=== PATIENT | female | born 1950 | race Caucasian/White ===

== ENCOUNTER → 2017-12-09 | Outpatient (CLI) | payer MEDICARE ==
[2017-12-09 11:41] LABS: T4, Free (Free Thyroxine) 1.81 ng/dL (0.78-2.19)
== END | disposition home or self-care (01) ==
LOC: LABWHC1 10:39
PROVIDERS: ATTEND Internal Medicine Endocrinology, Diabetes & Metabolism
DX: E03.8 Other specified hypothyroidism (principal)
CPT/HCPCS: 36415; 84439; 84443; 84480

== ENCOUNTER → 2018-02-08 | Outpatient (CLI) | payer MEDICARE | END | disposition home or self-care (01) | LOC: LABWHC1 10:26 | PROVIDERS: ATTEND Internal Medicine Endocrinology, Diabetes & Metabolism | DX: E03.8 Other specified hypothyroidism (principal) | CPT/HCPCS: 36415; 84443 ==

== ENCOUNTER → 2018-04-06 | Outpatient (CLI) | payer MEDICARE ==
[2018-04-06 14:06] LABS: T4, Free (Free Thyroxine) 1.95 ng/dL (0.78-2.19)
[2018-04-06 18:51] LABS: Thyroid Peroxidase Antibodies 306.2 U/mL (0.0-60.0)
== END | disposition home or self-care (01) ==
LOC: LABWHC1 12:36
PROVIDERS: ATTEND Internal Medicine Endocrinology, Diabetes & Metabolism
DX: E03.9 Hypothyroidism, unspecified (principal)
CPT/HCPCS: 36415; 84439; 84443; 84481; 86376; 86800

== ENCOUNTER → 2018-06-15 | Outpatient (CLI) | payer MEDICARE | END | disposition home or self-care (01) | LOC: LABWHC1 10:56 | PROVIDERS: ATTEND Internal Medicine Endocrinology, Diabetes & Metabolism | DX: E03.8 Other specified hypothyroidism (principal) | CPT/HCPCS: 36415; 84443 ==

== ENCOUNTER → 2018-06-23 | Outpatient (CLI) | payer MEDICARE ==
--- NOTE | 2018-06-26 10:15 | MM ---
Reason for exam: screening (asymptomatic). Last mammogram was performed 1 year and 8 months ago. History: Family history of breast cancer in mother at age 70. Physical Findings: A clinical breast exam by your physician is recommended on an annual basis and results should be correlated with mammographic findings. MG 3D Screening Mammo W/Cad Bilateral CC and MLO view(s) were taken. Technologist: RT Shree (R)(M) Prior study comparison: October 26, 2016, mammogram. June 25, 2014, mammogram. There are scattered fibroglandular densities. There is no discrete abnormality. No significant changes when compared with prior studies. ASSESSMENT: Negative, BI-RAD 1 RECOMMENDATION: Routine screening mammogram of both breasts in 1 year.
== END | disposition home or self-care (01) ==
LOC: RADMAMWWP 10:11
PROVIDERS: ATTEND Family Medicine
DX: Z12.31 Encounter for screening mammogram for malignant neoplasm of breast (principal)
CPT/HCPCS: 77063; 77067

== ENCOUNTER → 2018-08-02 | Outpatient (CLI) | payer MEDICARE ==
--- NOTE | 2018-08-02 13:42 | MR ---
EXAMINATION TYPE: MR iac wo/w con DATE OF EXAM: 08/02/2018 COMPARISON: NONE HISTORY: Left hearing loss and tinnitus. TECHNIQUE: Multiplanar, multisequence images of the brain and brainstem is performed without and with IV contras t, utilizing 4.5 mL intravenous Gadavist . Acoustic nerve disorder protocol. FINDINGS: Diffusion weighted images demonstrate no evidence of a recent infarct or other diffusion ab normality. There is no worrisome extra-axial fluid collection. The ventricular system and cisternal spaces are normal in size and appearance. The brain volume is age appropriate. There are few scatte red foci of T2 hyperintensity seen throughout the superficial, deep, and periventricular white matter . Approximately 10-20 small scattered lesions are noted. Midline structures demonstrate normal morphology. The craniocervical junction appears within normal limits. Normal vascular flow voids are present. Dominant right vertebral artery is incidentally noted . The visualized paranasal sinuses are clear and the globes are intact bilaterally. Mastoid air cells show no suspicious increased fluid. Vestibulocochlear complexes are symmetric and f elt within normal limits. No suspicious enhancing cerebellopontine angle mass is identified bilateral ly. Slight tilting is noted. IMPRESSION: 1. No suspicious fluid signal or enhancing mass identified to account for patient's symptoms. 2. Mild to moderate nonspecific white matter changes most likely on basis of product of chronic small vessel ischemic change in patient of this age.
== END | disposition home or self-care (01) ==
LOC: RADMRIMAIN 11:57
PROVIDERS: ATTEND Otolaryngology
DX: R90.89 Other abnormal findings on diagnostic imaging of central nervous system (principal); H93.12 Tinnitus, left ear; H91.92 Unspecified hearing loss, left ear
CPT/HCPCS: 82565; 70553; A9585

== ENCOUNTER → 2018-11-14 | Outpatient (CLI) | payer MEDICARE | END | disposition home or self-care (01) | LOC: LABWHC1 10:12 | PROVIDERS: ATTEND Internal Medicine Endocrinology, Diabetes & Metabolism | DX: E03.8 Other specified hypothyroidism (principal) | CPT/HCPCS: 36415; 84443 ==

== ENCOUNTER → 2019-04-16 | Outpatient (CLI) | payer MEDICARE ==
[2019-04-16 10:56] LABS: African American GFR (CKD) >90 (>60 ml/min/1.73 sqM); Blood Urea Nitrogen 13 mg/dL (7-17)
--- NOTE | 2019-04-16 15:34 | CT ---
EXAMINATION TYPE: CT chest w con DATE OF EXAM: 04/16/2019 COMPARISON: None HISTORY: 68-year-old female Hilar lymphadenopathy TECHNIQUE: Contiguous axial scanning of the chest after the administration of 100 mL of Isovue 300. Coronal/sagittal reconstructions performed. CT DLP: 276mGycm. Automatic exposure control utilized for a dose reduction. FINDINGS: Heart normal size without pericardial effusion. Ascending aorta is ectatic at 3.7 cm. Conventional ar ch vessel branching anatomy. Prominent but nonenlarged 7 mm left tracheobronchial angle lymph node. No thoracic lymphadenopathy by CT size criteria. Some focal reticular nodularity anterior right upper lobe. Elongated pulmonary nodule at the anterior midlung measures 1.6 x 0.6 cm. No consolidation or pleural effusion. Suggestion of mild anterior perihepatic ascites of uncertain etiology. Subtle 6 mm hypodensity in the anterior right liver lobe just underlying the fluid. Bones: Endplate spondylosis lower thoracic spine. IMPRESSION: 1. Some focal reticulonodular infiltrate anterior right upper lobe could represent an infectious/infl ammatory focus. 3 month follow-up to reassess. 2. A 1.6 x 0.6 cm elongated pulmonary nodule just adjacent should also be reassessed at that time to exclude early neoplasm. 3. No thoracic lymphadenopathy by CT size criteria. 4. Mild anterior perihepatic ascites of uncertain etiology. There is a subtle 6 mm hypodense lesion i n the anterior right liver lobe just underlying the fluid. Contrast-enhanced CT of the abdomen and pe lvis as clinically indicated. This area should also be reassessed at short interval follow-up.
== END | disposition home or self-care (01) ==
LOC: RADCTMAIN 10:13
PROVIDERS: ATTEND Internal Medicine Rheumatology
DX: R91.8 Other nonspecific abnormal finding of lung field (principal); R59.1 Generalized enlarged lymph nodes
CPT/HCPCS: 82565; 84520; 71260; 36415; Q9967

== ENCOUNTER → 2019-07-19 | Outpatient (CLI) | payer MEDICARE ==
--- NOTE | 2019-07-19 12:53 | CT ---
EXAMINATION TYPE: CT ChestAbdPelvis w con DATE OF EXAM: 07/19/2019 INDICATION: Right sided chest/abd mass. COMPARISON: 04/16/2019 CT DLP: 483.6 mGycm CONTRAST: Performed with Oral Contrast and with IV Contrast, patient injected with 100 mL of Isovue M300. TECHNIQUE: Axial images at 5 mm thick sections. Reconstructed images in the coronal plane. Delayed images through the kidneys. FINDINGS: CT CHEST: Portion of the thyroid visualized is normal. Small amount of nonspecific increased lung markings are in the anterior right upper lung field. The a maegan of increased density present previously currently measures 0.7 x 1.9 cm, increased from 0.6 x 1.6 cm.. Series 4 [address] PET CT for additional evaluation. No enlarged mediastinal or hilar adenopathy is evident. The ascending aorta diameter at the level of the main pulmonary artery is 2.8 cm. The main pulmonary artery diameter at the bifurcation is 2.[address] ABDOMEN: Small amount fluid is adjacent to the right lobe liver and diaphragm. There is a small ad jacent hypodense area within the liver measuring 0.8 cm. Series 3 image 57. Liver: Normal Spleen: Normal Pancreas: Normal Adrenal glands: The adrenal glands are normal. Gallbladder: Normal Kidneys: No masses are evident. No hydronephrosis is present. No cysts are present. Delayed images were obtained through the kidneys, which remain unremarkable. Aorta: Vascular calcification is within the aorta. Inferior vena cava: Normal. CT PELVIS: Loops of bowel within the abdomen and pelvis are normal. There are loops of bowel which are incom pletely distended or lack oral contrast limiting their evaluation. Appendix: Not identified. No suspicious tubular structures or inflammatory changes are Urinary bladder: Normal. Genitourinary structures: Uterus and ovaries are not identified. Osseous structures: No suspicious lytic or sclerotic lesions. Facet degenerative changes within the l umbar spine. IMPRESSIONS: 1. Subtle increase in size of the density within the right anterior lung. Consider additional evaluat ion with PET scan. 2. Small amount of fluid adjacent to the spleen and diaphragm, present previously. 3. Previous hypodensity within the anterior right lobe liver is stable.
== END | disposition home or self-care (01) ==
LOC: RADCTMAIN 10:23
PROVIDERS: ATTEND Family Medicine
DX: J98.4 Other disorders of lung (principal); R19.09 Other intra-abdominal and pelvic swelling, mass and lump
CPT/HCPCS: 82565; 84520; 71260; 74177; 36415; Q9967 ×2